=== PATIENT | female | born 1970 | race Native Hawaiian/Other Pacific Islander ===

== ENCOUNTER 2019-10-31 13:04 | Outpatient (CLI) | payer BC, OTHER | END 2019-10-31 22:33 | disposition home or self-care (01) | LOC: LAB 13:04 | DX: Z20.828 Contact with and (suspected) exposure to other viral communicable diseases (principal); R53.83 Other fatigue | CPT/HCPCS: 87635; G2023; U00003 ==

== ENCOUNTER 2022-01-08 10:18 | Outpatient (CLI) | payer BC | END 2022-01-08 20:51 | disposition home or self-care (01) | LOC: US 10:18 | PROVIDERS: ATTEND Nurse Practitioner Family | DX: M79.89 Other specified soft tissue disorders (principal); Z12.31 Encounter for screening mammogram for malignant neoplasm of breast; L81.9 Disorder of pigmentation, unspecified ==